=== PATIENT | male | born 1960 | race Native Hawaiian/Other Pacific Islander ===

== ENCOUNTER 2016-10-17 17:15 | Emergency (ER) | payer BC ==
[~2016-10-17] VITALS: Ht 170.2 cm; Wt 77.1 kg
[2016-10-17 18:48] VITALS: BP 148/93; TEMP 97.8
== END 2016-10-17 18:49 | disposition home or self-care (01) ==
LOC: ED 17:15
DX: S30.861A Insect bite (nonvenomous) of abdominal wall, initial encounter (principal); I10 Essential (primary) hypertension; W57.XXXA Bitten or stung by nonvenomous insect and other nonvenomous arthropods, initial encounter
CPT/HCPCS: 99283

== ENCOUNTER 2017-06-11 18:03 | Emergency (ER) | payer BC, OTHER ==
[~2017-06-11] VITALS: Ht 170.2 cm; Wt 77.1 kg
[2017-06-11 19:45] LABS: PLATELET COUNT 274 K/uL (142-355)
[2017-06-11 19:58] LABS: POTASSIUM 3.1 mmol/L (3.6-5.2)
[2017-06-11 22:28] VITALS: BP 168/94; TEMP 98.7
== END 2017-06-11 22:33 | disposition home or self-care (01) ==
LOC: ED 18:03
PROVIDERS: Specialist
DX: R45.851 Suicidal ideations (principal); G89.29 Other chronic pain
CPT/HCPCS: 80048; 80307; 80320; 80329; 85027; 93005; 94664; 94760; 99283

== ENCOUNTER 2017-08-25 23:04 | Emergency (ER) | payer OTHER ==
[~2017-08-25] VITALS: Ht 170.2 cm; Wt 77.1 kg
[2017-08-26 00:17] LABS: PLATELET COUNT 265 K/uL (142-355)
[2017-08-26 00:32] LABS: POTASSIUM 3.3 mmol/L (3.6-5.2); SODIUM 138 mmol/L (136-145)
[2017-08-26 08:00] VITALS: BP 153/105; TEMP 98
== END 2017-08-26 14:00 | disposition still patient (30) ==
LOC: ED 23:04
DX: R45.851 Suicidal ideations (principal)
CPT/HCPCS: 80053; 80307; 80329; 81000; 85027; 96372; 99285; J1885

== ENCOUNTER 2018-04-08 04:47 | Emergency (ER) | payer OTHER ==
[~2018-04-08] VITALS: Ht 170.2 cm; Wt 79.4 kg
[2018-04-08 04:50] VITALS: TEMP 98.4
[2018-04-08 05:45] LABS: PLATELET COUNT 256 K/uL (142-355)
[2018-04-08 06:06] LABS: POTASSIUM 3.2 mmol/L (3.6-5.2); SODIUM 143 mmol/L (136-145)
[2018-04-08 09:45] VITALS: BP 105/85
== END 2018-04-08 10:00 | disposition home or self-care (01) ==
LOC: ED 04:47
PROVIDERS: Emergency Medicine
DX: R07.89 Other chest pain (principal); I10 Essential (primary) hypertension
CPT/HCPCS: 36415; 80053; 82550; 82553; 84484; 85027; 93005; 96374; 96375; 99284; J1885; J2270

== ENCOUNTER 2019-10-26 20:55 | Inpatient (IN) | payer OTHER ==
[~2019-10-26] VITALS: Ht 172.7 cm; Wt 98.7 kg
[2019-10-26 21:45] VITALS: BP 90/60; TEMP 100
[2019-10-26 22:09] LABS: PLATELET COUNT 295 K/uL (142-355)
[2019-10-26 22:15] VITALS: BP 88/66
[2019-10-26 22:45] VITALS: BP 107/60
[2019-10-27] VITALS (7 sets, daily range): BP systolic 105–146; BP diastolic 66–88; TEMP 97.5–98.7; Ht 172.7 cm; Wt 98.7 kg
[2019-10-27 11:40] LABS: POTASSIUM 3.8 mmol/L (3.6-5.2)
[2019-10-28] VITALS: BP 131/71; TEMP 97.3
[2019-10-28 03:45] VITALS: BP 137/74; TEMP 98.3
[2019-10-28 05:00] LABS: PLATELET COUNT 205 K/uL (142-355)
[2019-10-28 05:02] LABS: POTASSIUM 3.8 mmol/L (3.6-5.2)
[2019-10-28 08:00] VITALS: BP 154/94; TEMP 97.9
[2019-10-28 12:00] VITALS: BP 156/78; BP 156/98; TEMP 98.1; TEMP 98.9
[2019-10-28 16:00] VITALS: BP 158/98; TEMP 97.9
[2019-10-28 20:24] VITALS: BP 137/89; TEMP 98.1
[2019-10-29] VITALS: BP 128/80; TEMP 98.2
[2019-10-29 03:49] VITALS: BP 117/88; TEMP 98.2
[2019-10-29 05:31] LABS: PLATELET COUNT 196 K/uL (142-355)
[2019-10-29 05:47] LABS: POTASSIUM 4.2 mmol/L (3.6-5.2)
[2019-10-29 08:00] VITALS: BP 159/94; TEMP 97.6
[2019-10-29 12:00] VITALS: BP 184/97; TEMP 98.1
[2019-10-29] MEDS ORDERED: LIDOPATCH TOP (13:15)
[2019-10-29] MEDS ORDERED: DICL1GEL2 TOP (13:15)
[2019-10-29] MEDS ORDERED: Flonase Nasal Inhale NAS (13:15)
== END 2019-10-29 14:50 | disposition home or self-care (01) | DRG 392 ==
LOC: ED 20:55 → MED/SURG 23:55 → UNDODEPER 10-27 01:03 → MED/SURG 10-29 14:50
PROVIDERS: Internal Medicine; ADMIT Emergency Medicine
DX: K52.89 Other specified noninfective gastroenteritis and colitis (principal); N17.8 Other acute kidney failure; E86.0 Dehydration; I95.89 Other hypotension; I10 Essential (primary) hypertension; J32.8 Other chronic sinusitis; A59.9 Trichomoniasis, unspecified
CPT/HCPCS: 36415; 51702; 80048; 80053; 80307; 80320; 81000; 82570; 84300; 85027; 87088; 87635; 93005; 96360; 96361; 96365; 96366; 96375; 99284; G2023; J2405; J3490; U00003

== ENCOUNTER 2019-11-04 16:13 | Emergency (ER) | payer OTHER ==
[~2019-11-04] VITALS: Ht 172.7 cm; Wt 98.4 kg
[2019-11-04 16:13] VITALS: TEMP 97.6
[~2019-11-04 16:13] MED LIST: DICL1GEL2 TOP; Flonase Nasal Inhale NAS; LIDOPATCH TOP
[2019-11-04 16:42] LABS: PLATELET COUNT 235 K/uL (142-355)
[2019-11-04 16:58] LABS: POTASSIUM 3.7 mmol/L (3.6-5.2); SODIUM 142 mmol/L (136-145)
[2019-11-04 17:02] LABS: PARTIAL THROMBOPLASTIN TIME 25.9 SECONDS (24.5-33.6)
[2019-11-05 05:38] VITALS: BP 144/86
== END 2019-11-05 05:45 | disposition other institution (70) ==
LOC: ED 16:13
PROVIDERS: Family Medicine
DX: T14.91XA Suicide attempt, initial encounter (principal); F32.89 Other specified depressive episodes; Z98.84 Bariatric surgery status; Z79.1 Long term (current) use of non-steroidal anti-inflammatories (NSAID); Z51.81 Encounter for therapeutic drug level monitoring; T46.4X2A Poisoning by angiotensin-converting-enzyme inhibitors, intentional self-harm, initial encounter; Y92.89 Other specified places as the place of occurrence of the external cause
CPT/HCPCS: 80053; 80307; 80320; 80329; 81000; 82550; 82553; 84484; 85027; 85610; 85730; 93005; 96360; 96375; 99285; J2405

== ENCOUNTER 2020-03-10 13:51 | Emergency (ER) | payer OTHER ==
[~2020-03-10] VITALS: Ht 172.7 cm; Wt 86.2 kg
[2020-03-10 15:01] VITALS: BP 212/151; TEMP 97.5
== END 2020-03-10 15:09 | disposition home or self-care (01) ==
LOC: ED 13:51
DX: H65.191 Other acute nonsuppurative otitis media, right ear (principal); J32.8 Other chronic sinusitis; I10 Essential (primary) hypertension; F17.210 Nicotine dependence, cigarettes, uncomplicated; Y04.0XXA Assault by unarmed brawl or fight, initial encounter; Y92.89 Other specified places as the place of occurrence of the external cause
CPT/HCPCS: 96372; 99283; J1885

== ENCOUNTER 2020-03-19 07:00 | Emergency (ER) | payer OTHER ==
[~2020-03-19] VITALS: Ht 172.7 cm; Wt 86.2 kg
[2020-03-19 07:30] VITALS: TEMP 97.3
[2020-03-19 07:51] LABS: PARTIAL THROMBOPLASTIN TIME 30.3 SECONDS (24.5-33.6)
[2020-03-19 07:54] LABS: PLATELET COUNT 283 K/uL (142-355)
[2020-03-19 07:58] LABS: POTASSIUM 3.8 mmol/L (3.6-5.2)
[2020-03-19 11:00] VITALS: BP 145/99
== END 2020-03-19 11:24 | disposition still patient (30) ==
LOC: ED 07:04
PROVIDERS: Hospitalist
PROC: 0T9B70Z Drainage of Bladder with Drainage Device, Via Natural or Artificial Opening (ICD-10-PCS; principal; 2020-03-19)
DX: R40.4 Transient alteration of awareness (principal); Z03.818 Encounter for observation for suspected exposure to other biological agents ruled out; R06.02 Shortness of breath
CPT/HCPCS: 36600; 51702; 80053; 80307; 80320; 80329; 81000; 82550; 82553; 82805; 83605; 83880; 84484; 85027; 85379; 85610; 85730; 87040; 87077; 87185; 87205; 87502; 87635; 93005; 96360; 96361; 96365; 96372; 96375; 99285; J0696; J1100; J1650; J2060; U0003

== ENCOUNTER 2020-05-21 22:09 | Emergency (ER) | payer OTHER ==
[~2020-05-21] VITALS: Ht 172.7 cm; Wt 86.2 kg
[2020-05-21 22:49] LABS: PLATELET COUNT 242 K/uL (142-355)
[2020-05-21 22:58] LABS: POTASSIUM 3.4 mmol/L (3.6-5.2); SODIUM 132 mmol/L (136-145)
[2020-05-21 23:55] VITALS: BP 168/98; TEMP 98.9
== END 2020-05-21 23:55 | disposition home or self-care (01) ==
LOC: ED 22:09
PROVIDERS: Emergency Medicine Emergency Medical Services
DX: U07.1 COVID-19 (principal); I10 Essential (primary) hypertension
CPT/HCPCS: 36415; 80053; 84484; 85027; 87635; 93005; 96374; 99284; J1100; U0003

== ENCOUNTER 2020-06-27 02:14 | Emergency (ER) | payer OTHER ==
[~2020-06-27] VITALS: Ht 172.7 cm; Wt 86.2 kg
[2020-06-27 03:08] LABS: PLATELET COUNT 217 K/uL (142-355)
[2020-06-27 05:15] VITALS: BP 124/76; TEMP 98.4
== END 2020-06-27 05:15 | disposition home or self-care (01) ==
LOC: ED 02:14
PROVIDERS: Family Medicine
DX: F19.10 Other psychoactive substance abuse, uncomplicated (principal); E87.6 Hypokalemia; R41.0 Disorientation, unspecified
CPT/HCPCS: 36415; 80053; 80307; 80320; 81000; 85027; 93005; 99284

== ENCOUNTER 2020-09-21 17:28 | Emergency (ER) | payer OTHER ==
[~2020-09-21] VITALS: Ht 172.7 cm; Wt 86.2 kg
[2020-09-21 17:28] VITALS: TEMP 98.4
[2020-09-21 18:36] LABS: PLATELET COUNT 198 K/uL (142-355)
[2020-09-21 18:43] LABS: POTASSIUM 4.2 mmol/L (3.6-5.2)
[2020-09-22 09:00] VITALS: BP 141/92
== END 2020-09-22 09:15 | disposition short-term general hospital (02) ==
LOC: ED 17:28
PROVIDERS: Family Medicine
DX: S82.034A Nondisplaced transverse fracture of right patella, initial encounter for closed fracture (principal); S82.035A Nondisplaced transverse fracture of left patella, initial encounter for closed fracture; S72.492A Other fracture of lower end of left femur, initial encounter for closed fracture; R10.84 Generalized abdominal pain; R51.9 Headache, unspecified; F17.210 Nicotine dependence, cigarettes, uncomplicated; V89.2XXA Person injured in unspecified motor-vehicle accident, traffic, initial encounter; Y92.411 Interstate highway as the place of occurrence of the external cause
CPT/HCPCS: 36415; 80053; 85027; 96374; 96375; 99284; J0360; J1885; J2270

== ENCOUNTER 2021-11-19 13:59 | Emergency (ER) | payer OTHER ==
[~2021-11-19] VITALS: Ht 172.7 cm; Wt 86.2 kg
[2021-11-19 13:59] VITALS: BP 150/110; TEMP 98
[2021-11-19 14:44] LABS: PLATELET COUNT 231 K/uL (142-355)
[2021-11-19 14:52] LABS: POTASSIUM 3.2 mmol/L (3.6-5.2)
[2021-11-19 14:56] LABS: PARTIAL THROMBOPLASTIN TIME 27.2 SECONDS (24.5-33.6)
== END 2021-11-19 16:05 | disposition home or self-care (01) ==
LOC: ED 13:59
PROVIDERS: Hospitalist
DX: R07.89 Other chest pain (principal); K21.9 Gastro-esophageal reflux disease without esophagitis; F41.8 Other specified anxiety disorders
CPT/HCPCS: 80053; 82550; 83880; 84484; 85027; 85610; 85730; 93005; 99283

== ENCOUNTER 2021-11-26 12:30 | Emergency (ER) | payer OTHER ==
[~2021-11-26] VITALS: Ht 172.7 cm; Wt 76.2 kg
[2021-11-26 12:35] VITALS: TEMP 97.7
[2021-11-26 13:04] LABS: PLATELET COUNT 247 K/uL (142-355)
[2021-11-26 21:30] VITALS: BP 134/90
== END 2021-11-27 01:20 | disposition still patient (30) ==
LOC: ED 12:30
PROVIDERS: Emergency Medicine
DX: R45.851 Suicidal ideations (principal); R82.5 Elevated urine levels of drugs, medicaments and biological substances; E86.0 Dehydration; Z11.52 Encounter for screening for COVID-19
CPT/HCPCS: 80053; 80143; 80179; 80307; 80320; 81002; 85027; 87635; 93005; 99285; U0003

== ENCOUNTER 2022-01-04 17:08 | Observation (INO) | payer OTHER ==
[~2022-01-04] VITALS: Ht 170.2 cm; Wt 75.8 kg
[2022-01-04 17:12] VITALS: BP 93/59; TEMP 98.6
[2022-01-04 17:34] LABS: PLATELET COUNT 214 K/uL (142-355)
[2022-01-04 17:56] LABS: POTASSIUM 3.8 mmol/L (3.6-5.2)
[2022-01-04 20:38] VITALS: BP 142/77; TEMP 98.3; Ht 170.2 cm; Wt 75.8 kg
[2022-01-05] VITALS: BP 116/74; TEMP 97.6
[2022-01-05 04:00] VITALS: BP 126/89; TEMP 98
[2022-01-05 05:50] LABS: POTASSIUM 3.9 mmol/L (3.6-5.2)
[2022-01-05 08:00] VITALS: BP 151/99; TEMP 98.3
== END 2022-01-05 11:38 | disposition home or self-care (01) ==
LOC: ED 17:08 → MED/SURG 19:00
PROVIDERS: ADMIT Emergency Medicine; ATTEND Internal Medicine
DX: N28.9 Disorder of kidney and ureter, unspecified (principal); F41.1 Generalized anxiety disorder; F19.10 Other psychoactive substance abuse, uncomplicated; E86.0 Dehydration; R53.1 Weakness; Z79.899 Other long term (current) drug therapy
CPT/HCPCS: 36415; 80048; 80053; 80307; 80320; 81002; 82550; 84484; 85027; 87635; 93005; 96360; 96361; 99220; 99284; G0378; U0003

== ENCOUNTER 2022-07-26 17:49 | Observation (INO) | payer OTHER ==
[~2022-07-26] VITALS: Ht 172.7 cm; Wt 83.5 kg
[2022-07-26 17:49] VITALS: BP 153/124; TEMP 97.8
[2022-07-26 18:22] LABS: PLATELET COUNT 253 K/uL (142-355)
[2022-07-26 18:28] LABS: POTASSIUM 3.4 mmol/L (3.6-5.2)
[2022-07-26 18:52] LABS: PARTIAL THROMBOPLASTIN TIME 26.2 SECONDS (24.5-33.6)
[2022-07-26 19:00] VITALS: BP 170/116
[2022-07-26 20:00] VITALS: BP 155/114
[2022-07-26 21:09] VITALS: BP 187/116; TEMP 98.3; Ht 172.7 cm; Wt 83.5 kg
[2022-07-27] VITALS (10 sets, daily range): BP systolic 96–204; BP diastolic 58–132; TEMP 97.8–98.4
[2022-07-27] MEDS ORDERED: ZESTRIL40 MG PO (11:52)
[2022-07-27] MEDS ORDERED: CELEXA40 MG PO (11:53)
[2022-07-27] MEDS ORDERED: METF100038 PO (11:53)
[2022-07-27] MEDS ORDERED: QUETIAPINE50 MG PO (11:55)
[2022-07-27] MEDS ORDERED: DICLOFENAC SODIUM1 % TD (11:57)
[2022-07-28 03:35] VITALS: BP 141/89; TEMP 97.6
[2022-07-28 05:00] LABS: POTASSIUM 3.7 mmol/L (3.6-5.2)
[2022-07-28 05:19] LABS: PLATELET COUNT 200 K/uL (142-355)
[2022-07-28 08:00] VITALS: BP 190/127; TEMP 97.4
[2022-07-28 12:12] VITALS: BP 145/90; TEMP 98.1
[2022-07-28 17:29] VITALS: BP 147/91; TEMP 97.9
[2022-07-28 20:07] VITALS: BP 112/72; TEMP 98.2
[2022-07-29] VITALS: BP 158/101; TEMP 98.2
[2022-07-29 04:00] VITALS: BP 159/91; TEMP 98.3
[2022-07-29 08:00] VITALS: BP 155/97; TEMP 98.3
[2022-07-29] MEDS ORDERED: CITALOPRAM20 MG PO ×2 (10:06→10:26)
[2022-07-29] MEDS ORDERED: LISI20TA11 PO (10:07)
[2022-07-29] MEDS ORDERED: QUET25TA2 PO (10:07)
[2022-07-29] MEDS ORDERED: ALBU90AE13 INH (10:42)
[2022-07-29] MEDS ORDERED: LIPITOR10 MG PO (10:42)
[2022-07-29] MEDS ORDERED: ASPIRIN CHLD81 MG PO (10:42)
[2022-07-29 12:00] VITALS: BP 149/98; TEMP 98
== END 2022-07-29 15:20 | disposition home or self-care (01) ==
LOC: ED 17:49 → MED/SURG 20:44
PROVIDERS: Emergency Medicine; ADMIT Internal Medicine; ATTEND Internal Medicine
DX: Z86.73 Personal history of transient ischemic attack (TIA), and cerebral infarction without residual deficits (principal); I10 Essential (primary) hypertension; R26.81 Unsteadiness on feet; R53.1 Weakness; Z87.891 Personal history of nicotine dependence; R07.89 Other chest pain; Z79.899 Other long term (current) drug therapy
CPT/HCPCS: 36415; 80053; 80307; 81002; 82550; 84484; 85027; 85610; 85730; 93005; 96360; 96361; 96372; 96374; 99221; 99284; A9576; G0378; J1650; J1885; J3490

== ENCOUNTER 2022-08-05 16:14 | Emergency (ER) | payer OTHER ==
[~2022-08-05] VITALS: Ht 172.7 cm; Wt 86.2 kg
[2022-08-05 16:14] VITALS: TEMP 98
[~2022-08-05 16:14] MED LIST changes: +ALBU90AE13 INH; +ASPIRIN CHLD81 MG PO; +CELEXA40 MG PO; +CITALOPRAM20 MG PO; +DICLOFENAC SODIUM1 % TD; +LIPITOR10 MG PO; +LISI20TA11 PO; +METF100038 PO; +QUET25TA2 PO; +QUETIAPINE50 MG PO; +ZESTRIL40 MG PO
[2022-08-05 18:04] VITALS: BP 138/86
== END 2022-08-05 19:00 | disposition home or self-care (01) ==
LOC: ED 16:14
DX: G44.009 Cluster headache syndrome, unspecified, not intractable (principal); F17.210 Nicotine dependence, cigarettes, uncomplicated
CPT/HCPCS: 96372; 96374; 99283; 99284; J2270; J2405

== ENCOUNTER 2022-08-13 08:46 | Emergency (ER) | payer OTHER ==
[~2022-08-13] VITALS: Ht 172.7 cm; Wt 90.7 kg
[2022-08-13 08:48] VITALS: TEMP 97.3
[2022-08-13 09:27] LABS: PLATELET COUNT 241 K/uL (142-355)
[2022-08-13 09:40] LABS: POTASSIUM 4.1 mmol/L (3.6-5.2)
[2022-08-13 11:00] VITALS: BP 161/105
== END 2022-08-13 11:24 | disposition home or self-care (01) ==
LOC: ED 08:46
PROVIDERS: Emergency Medicine Emergency Medical Services
DX: R51.9 Headache, unspecified (principal); I10 Essential (primary) hypertension; F17.210 Nicotine dependence, cigarettes, uncomplicated; F15.90 Other stimulant use, unspecified, uncomplicated; F12.93 Cannabis use, unspecified with withdrawal
CPT/HCPCS: 80053; 80307; 81002; 84484; 85027; 93005; 99284

== ENCOUNTER 2022-08-14 21:37 | Emergency (ER) | payer OTHER ==
[~2022-08-14] VITALS: Ht 172.7 cm; Wt 81.6 kg
[2022-08-14 21:45] VITALS: TEMP 98.8
[2022-08-14 22:53] LABS: PLATELET COUNT 237 K/uL (142-355)
[2022-08-14 22:58] LABS: POTASSIUM 4.2 mmol/L (3.6-5.2)
[2022-08-15 00:44] VITALS: BP 142/98
== END 2022-08-15 00:44 | disposition home or self-care (01) ==
LOC: ED 21:37
PROVIDERS: Family Medicine
DX: G44.89 Other headache syndrome (principal); F19.10 Other psychoactive substance abuse, uncomplicated; R55 Syncope and collapse; F17.200 Nicotine dependence, unspecified, uncomplicated
CPT/HCPCS: 80053; 80307; 81002; 85027; 99283

== ENCOUNTER 2022-08-29 20:51 | Emergency (ER) | payer OTHER ==
[~2022-08-29] VITALS: Ht 172.7 cm; Wt 81.6 kg
[2022-08-29 21:00] VITALS: BP 137/101; TEMP 98.7
[2022-08-29 21:21] LABS: PLATELET COUNT 243 K/uL (142-355)
[2022-08-29 21:27] LABS: POTASSIUM 4.6 mmol/L (3.6-5.2); SODIUM 142 mmol/L (136-145)
== END 2022-08-30 00:40 | disposition home or self-care (01) ==
LOC: ED 20:51
PROVIDERS: Emergency Medicine
DX: F32.9 Major depressive disorder, single episode, unspecified (principal); F17.210 Nicotine dependence, cigarettes, uncomplicated
CPT/HCPCS: 80053; 80143; 80179; 80307; 81002; 85027; 87635; 93005; 99285; U0003

== ENCOUNTER 2022-09-25 10:56 | Outpatient (CLI) | payer OTHER ==
[2022-09-25 11:16] LABS: PLATELET COUNT 214 K/uL (142-355)
[2022-09-25 11:34] LABS: POTASSIUM 4.7 mmol/L (3.6-5.2)
== END 2022-09-25 19:45 | disposition home or self-care (01) ==
LOC: LAB 10:56
PROVIDERS: ATTEND Nurse Practitioner Family
DX: I10 Essential (primary) hypertension (principal); E78.49 Other hyperlipidemia; R53.83 Other fatigue; Z13.1 Encounter for screening for diabetes mellitus; E55.9 Vitamin D deficiency, unspecified; Z79.899 Other long term (current) drug therapy
CPT/HCPCS: 80053; 80061; 81002; 82043; 82306; 83036; 84439; 84443; 85027